=== PATIENT | male | born 2000 | race Caucasian/White ===

== ENCOUNTER 2024-09-04 22:52 | Emergency (ER) | payer OTHER ==
[2024-09-04 23:01] VITALS: BP 143/92; PULSE 108; RESP 18; BMI 37.1
[2024-09-04] MEDS ORDERED: ACETAMINOPHEN 325 MG TABLET (FP) ONE (23:25)
[2024-09-04] MEDS ORDERED: KETOROLAC TROMETHAMINE 30 MG/1 ML VIAL ONE (23:26)
[2024-09-04] MEDS: KETOROLAC TROMETHAMINE 30 MG/1 ML VIAL IM ONE (23:29)
[2024-09-04] MEDS: ACETAMINOPHEN 500 MG TABLET (FP) PO ONE (23:29)
[2024-09-04] MEDS ORDERED: ONDANSETRON *ODT* 4 MG TABLET ONE (23:34)
[2024-09-04] MEDS: ONDANSETRON *ODT* 4 MG TABLET SL ONE (23:36)
[2024-09-04 23:54] LABS: THROAT:GRP A STREP NOT DETECTED (NOTDETECTED)
[2024-09-05 00:13] VITALS: TEMP 101.1
[2024-09-05 01:15] LABS: HIV INTERPRETATION NEGATIVE (NEGATIVE)
== END 2024-09-05 00:55 | disposition home or self-care (01) ==
LOC: JER 22:52
PROC: 3E0133Z Introduction of Anti-inflammatory into Subcutaneous Tissue, Percutaneous Approach (ICD-10-PCS; principal; 2024-09-04)
DX: J02.9 Acute pharyngitis, unspecified (principal); R50.9 Fever, unspecified; B34.9 Viral infection, unspecified; Z20.822 Contact with and (suspected) exposure to COVID-19
CPT/HCPCS: 0241U-QW; 36415; 86803; 87389; 87651; 99284-25; Q0162